=== PATIENT | female | born 1955 | race Caucasian/White ===

== ENCOUNTER 2024-11-18 13:21 | Outpatient (CLI) | payer MEDICARE, OTHER, SELFPAY ==
--- NOTE | 2024-11-18 13:45 | MR_ITS ---
[facility] [address] [facility] [address] Phone:?[phone] Fax:?[phone] Referring Physician Information: Daniel Carbajal M.D. [id number] [facility] ([facility] [address] Phone:?[phone] Fax:?[phone] Patient:Arturo Barrow D.O.B:?1955 Sex:?Female Phone:?[phone] [facility] MRN:?[id number] Exam Date:?11/18/2024 EXAM: MRI of the RIGHT KNEE, without contrast CLINICAL: Female, 69 years old, with right knee pain. No other clinical information available/provided at this time. INDICATION: Evaluate for ligament injury versus other knee internal derangement etiology. PRIOR SURGERY: None reported. PLAIN FILMS: 10/24/2024 radiographic series of the right knee. COMPARISONS: No prior MRIs available. TECHNICAL: Using a 1.5 Elisabeth MR scanner and a localizing surface coil: 3.0 mm?sagittals: PD, PDFS 3.0 mm?coronals: PD, STIR 3.0 mm?axials: PD, T2FS SEDATION: None. CONTRAST: None. IMPRESSION: 1. Findings suspect for recent osseous injury of the lateral tibial plateau including minimal osteochondral surface impaction with incomplete subcortical marrow fracture and nondisplaced small articular cortical fracture line. 2. Focal degeneration, although perhaps contusion, and minimal focus of superior surface irregularity of the lateral meniscus anterior horn without other or larger lateral meniscus tear. 3. Chronic-appearing complex tear with maceration and attenuation of most of the medial meniscus with expected loss of normal meniscal load-sharing function. 4. Associated chronic-appearing marked medial compartment chondromalacia/osteoarthritis. 5. Marked patellofemoral chondromalacia/osteoarthritis. 6. Large knee effusion. FINDINGS: Knee joint: Effusion: Relatively large knee effusion. Popliteal cyst: None. Loose bodies: None. Subcutaneous and extra-articular soft tissues: Unremarkable. Bones: Suspicion for residua of recent osseous injury of the lateral tibial plateau. Specifically, there is questioned slight smoothly-transitioned maximal 1 mm depression of the anterolateral lateral tibial plateau, associated with incomplete subcortical marrow trabecular microfracture and moderate reactive marrow edema (sagittal PDFS & PD series 6 & 5, images 12-7; coronal PD & STIR series 7 & 8, images 21-17). Also associated 1 cm segment of sagittally-oriented articular cortical fracture line expected to involve the overlying articular cartilage surface, subtly appreciated on coronal STIR series 8, images 19-17). Ligaments: ACL: Slender fluid-like signal intensity extends along the mid to proximal aspect of the anterior cruciate ligament suspect for an element of mucoid degeneration (sagittal PD & PDFS series 5 & 6, image 15. No ACL tear and no convincing significant sprain injury. PCL: Intact and normal. MCL: Intact and normal. FCL: Intact and normal. Posterolateral corner: Intact popliteus, biceps femoris, iliotibial band, popliteofibular ligament and lateral gastrocnemius. Posteromedial corner: Intact pes anserinus and posterior oblique ligament. Extensor mechanism: Patellar tendon: Intact and normal. Quadriceps tendon: Intact and normal. Retinacula: Intact and normal. Fat pads: Unremarkable. Medial compartment: Medial meniscus: Marked deformity including prominent attenuation and irregularity reflects chronic-appearing tear and perhaps element of chronic maceration of the medial meniscus centered at its middle third but also extending into adjacent portions of anterior and posterior thirds (sagittal images 18-26; coronal images 21-11). Medial femoral condyle: Relatively broad-based grade II-III chondromalacia with irregularity of most of the central weight-bearing medial femoral condyle is accompanied by marked marginal osteophyte formation, and minimal subjacent reactive marrow edema at this time. Medial tibial plateau: Grade III-IV chondromalacia/thinning of the anteromedial rim of the medial tibial plateau is accompanied by moderate to marked marginal osteophyte formation, without subjacent reactive marrow edema at this time. Lateral compartment: Lateral meniscus: Prominent intrasubstance degeneration of the lateral meniscus anterior horn is questioned more focally extend through mid superior surface, without larger tear (sagittal images 8-12). Lateral femoral condyle: Localized chondral thinning of the anterolateral lateral femoral condyle, without subjacent marrow edema. Lateral tibial plateau: Approximately 1 cm irregular grade II-III chondromalacia of the posteromesial lateral tibial plateau is not associated with subjacent reactive marrow edema (coronal images 22-20). Patellofemoral joint: Patella: Grade III-IV chondral thinning/loss of the mid to inferior lateral patellar facet is accompanied by mild marginal osteophyte formation, without subjacent reactive marrow edema at this time (axial images 8-14; sagittal images 14-8). Trochlea: Broad-based grade II-III and more localized grade IV chondromalacia/thinning and some irregularity of most of the femoral trochlea is accompanied by mild to moderate marginal osteophyte formation and minimal subjacent marrow edema. Proximal tibiofibular joint: Unremarkable. Neurovascular: Popliteal artery/vein: Normal. Anterior tibial artery: No aberrant variant. Tibial nerve: Normal. Popliteal nerve: Normal. Common peroneal nerve: Normal. [facility] Electronically signed on 11/20/2024 8:07:00 AM by Gilson Jordan M.D.
== END 2024-11-18 13:22 | disposition home or self-care (01) ==
LOC: MRI 13:21
PROVIDERS: PCP Nurse Practitioner; Visit Provider Orthopaedic Surgery
DX: M25.561 Pain in right knee (principal); S83.231A Complex tear of medial meniscus, current injury, right knee, initial encounter; M94.261 Chondromalacia, right knee; M17.11 Unilateral primary osteoarthritis, right knee; M25.461 Effusion, right knee
CPT/HCPCS: 73721